=== PATIENT | female | born 1960 | race Caucasian/White ===

== ENCOUNTER → 2021-10-23 08:42 | Outpatient (BNVA) | payer SELFPAY | PROVIDERS: PCP Internal Medicine; Visit Provider Internal Medicine | DX: Z02.79 Encounter for issue of other medical certificate (principal) ==

== ENCOUNTER → 2021-10-25 10:40 | Outpatient (BNVA) | payer BC, SELFPAY | PROVIDERS: PCP Internal Medicine; Visit Provider Nurse Practitioner Family ==

== ENCOUNTER → 2022-08-22 13:01 | Outpatient (BNVA) | payer BC, SELFPAY | PROVIDERS: PCP Internal Medicine; Visit Provider Nurse Practitioner Family | DX: M72.2 Plantar fascial fibromatosis (principal); L98.499 Non-pressure chronic ulcer of skin of other sites with unspecified severity ==

== ENCOUNTER → 2022-11-20 13:00 | Outpatient (BNVA) | payer BC, SELFPAY | PROVIDERS: PCP Internal Medicine; Visit Provider Nurse Practitioner Family | DX: M72.2 Plantar fascial fibromatosis (principal); L98.499 Non-pressure chronic ulcer of skin of other sites with unspecified severity ==

== ENCOUNTER 2023-04-02 12:55 | Outpatient (AMB) | payer BC, SELFPAY ==
[2023-04-02 12:58] VITALS: BP 134/70; PULSE 69; O2SAT 96; BMI 35.6
--- NOTE | 2023-04-02 12:58 | MHC.OFFVIS ---
Intake Vital Signs 04/02/23 12:58 Height 5 ft 4 in Weight 207 lb 8 oz BMI 35.6 BP 134/70 Blood Pressure Location Rt brachial Position Sitting Pulse 69 Pulse Source Pulse Oximeter Pulse Oximetry (%) 96 Oxygen Delivery Method Room Air Intake Visit Reasons: 4m Follow up Cervicalgia - LVM Intake Note: Pt presents as a f/u for cervicalgia. Pt states Id like a new foot doctor referral. my plantar fasciitis still bothers me. Caster Helper Required: No Allergies Cephalexin Allergy (Unknown, Uncoded 04/02/23 13:04) unkn Codeine Sulfate Allergy (Unknown, Uncoded 04/02/23 13:04) Abdominal Pain Pravachol Allergy (Unknown, Uncoded 04/02/23 13:04) unknown Rocephin Allergy (Unknown, Uncoded 04/02/23 13:04) Swelling Medication List - Last Reconciled 04/02/23 by MARK Paulson albuterol sulfate 90 mcg/actuation inhalation gabapentin 100 - 300 mg (1 - 3 x 100 mg) PO BEDTIME 90 days mometasone-formoterol 200-5 mcg/actuation (Dulera) 2 puffs inhalation BID ropinirole 0.25 - 0.5 mg PO BEDTIME sertraline mg PO HPI HPI Comments History of Present Illness Details 62-yr-old female presents for f/u visit. Pt denies any significant interval medical changes. Pt reports the Gabapentin 300mg qhs is helping with the thoracic and back pain. She is still having bilateral heel pain- would like to see a new gas well pumper. She notes that when her sleep is more fragmented she feels more forgetful. Her sleep is more fragmented especially when she has esophageal airway irritation and feeling of esophageal restriction- this is often d/t eating chips, crackers, hot but more so cold foods/drinks, etc. She rarely eats these. She has seen ENT- states that exam has been normal. She does note taht she has some nocturnal bruxism- not currently using a mouthguard. Using nyquil and melatonin for sleep. Her PAP compliance report shows CPAP 8cmH2O, Usage > 4 hrs 83%, average hours used > 8hrs, residual AHI 2/hr. PFSH Medical History Cervicalgia Surgical History History of appendectomy History of hysterectomy Family History Brother Throat cancer Father Colon cancer Mother Breast cancer Social History Household Members: Significant Other Alcohol intake: current Alcohol intake frequency: holidays/special occasions only Patient Tobacco Use Status: Former Tobacco user Current occupational status: employed and retired Current occupation: garbage truck driver Review of Systems Const All systems reviewed & are unremarkable except as noted in HPI and below Physical Exam Vital Signs: Last Vital Signs Pulse 69 04/02/23 12:58 BP 134/70 04/02/23 12:58 Pulse Ox 96 04/02/23 12:58 Oxygen Delivery Method Room Air 04/02/23 12:58 BMI result Body Mass Index 35.6 Const General: cooperative and no acute distress Orientation/consciousness: patient oriented x3 HEENT Head: Yes normocephalic Resp Effort & Inspection: normal respiratory effort and able to speak in complete sentences Neuro General: patient oriented x3, gait normal and CN's II-XI intact bilaterally Cognition (Neuro): normal cognition Motor exam (neuro): 5/5 motor strength present throughout Psych Appearance: grossly normal Mental Status: mental status grossly normal Speech and movement: Normal speech and movement present Affect: normal affect Attitude: cooperative Thought process: Normal thought process present Thought content: Normal thought content present Insight: Good insight present (Psych) Judgement: Good judgement present (Psych) Assessment & Plan Assessment & Plan (1) Cramp and spasm: Code(s): R25.2 - Cramp and spasm (2) Hoarseness: Code(s): R49.0 - Dysphonia (3) Obstructive sleep apnea: Comment: on CPAP f/b medicare coordinator Dr Rice. Code(s): G47.33 - Obstructive sleep apnea (adult) (pediatric) (4) Pain of right heel: Code(s): M79.671 - Pain in right foot Plan For thoracic and low back pain: Continue Gabapentin 300mg qhs. For right heel pain: Continue ankle/foot ROM exercises. May use OTC topical analgesics, such as Salon-Pas, Volatern gel. Will refer pt to new gas well pumper podiatry. For RLS: Pt believes she has stopped Requip 0.5mg qhs. Monitor. For FAREED: Continue CPAP 8 cmH2O nightly > 4 hrs, as pt is experiencing good clinical effect and reduction in residual AHI. Try Xylimelts 1-2 tabs qhs- in hopes this alleviates nocturnal throat irritation s/s. f/u in 4 months or sooner prn. Orders: Referrals Podiatry Referral M79.671 - Pain in right foot Coding Level of Care Code Est Pt Level 4 (87119) Diagnoses Cramp and spasm R25.2 Hoarseness R49.0 Obstructive sleep apnea G47.33 Pain of right heel M79.671
== END 2023-04-02 13:53 | disposition home or self-care (01) ==
PROVIDERS: Visit Provider Nurse Practitioner Family
DX: R25.2 Cramp and spasm (principal); R49.0 Dysphonia; G47.33 Obstructive sleep apnea (adult) (pediatric); M79.671 Pain in right foot
CPT/HCPCS: 99214

== ENCOUNTER → 2023-04-02 12:55 | Outpatient (BNVA) | payer BC, SELFPAY | PROVIDERS: Visit Provider Nurse Practitioner Family | DX: M72.2 Plantar fascial fibromatosis (principal); L98.499 Non-pressure chronic ulcer of skin of other sites with unspecified severity ==

== ENCOUNTER → 2024-04-06 19:30 | Outpatient (REF) | payer MEDICARE, SELFPAY | LOC: HO.SL 19:30 | PROVIDERS: PCP Internal Medicine; Visit Provider Nurse Practitioner Family | DX: G47.33 Obstructive sleep apnea (adult) (pediatric) (principal); R53.83 Other fatigue | CPT/HCPCS: 95810 ==

== ENCOUNTER → 2024-04-06 19:30 | Outpatient (BNV) | payer MEDICARE, SELFPAY | PROVIDERS: PCP Internal Medicine; Visit Provider Psychiatry & Neurology Neurology | DX: G47.33 Obstructive sleep apnea (adult) (pediatric) (principal) | CPT/HCPCS: 95810 ==